=== PATIENT | male | born 1980 | race Caucasian/White ===

== ENCOUNTER → 2024-03-03 14:14 | Outpatient (CLI) | payer OTHER, SELFPAY ==
--- NOTE | 2024-03-03 | DI.US.S_ITS ---
PROCEDURE: US ARTERIAL DUPLEX LE BI INDICATIONS: POOR CIRCULATION (SOLES OF FEET GO WHITE) TECHNIQUE: Color and pulse Doppler interrogation was performed of both lower extremity arterial systems, with image documentation. COMPARISON: None. FINDINGS: Right lower extremity: Common femoral artery: 93 cm/sec, with triphasic flow. Deep femoral artery: 41 cm/sec, with biphasic flow. Proximal superficial femoral artery: 71 cm/sec, with triphasic flow. Mid superficial femoral artery: 91 cm/sec, with triphasic flow. Distal superficial femoral artery: 72 cm/sec, with triphasic flow. Popliteal artery: 57 cm/sec, with triphasic flow. Posterior tibial artery: 97 cm/sec, with triphasic flow. Anterior tibial artery/dorsalis pedis: 99 cm/sec, with triphasic flow. [place]ara-scale imaging description: No significant atherosclerotic plaque Left lower extremity: Common femoral artery: 79 cm/sec, with triphasic flow. Deep femoral artery: 49 cm/sec, with triphasic flow. Proximal superficial femoral artery: 103 cm/sec, with triphasic flow. Mid superficial femoral artery: 90 cm/sec, with triphasic flow. Distal superficial femoral artery: 84 cm/sec, with triphasic flow. Popliteal artery: 62 cm/sec, with triphasic flow. Posterior tibial artery: 96 cm/sec, with triphasic flow. Anterior tibial artery/dorsalis pedis: 90 cm/sec, with triphasic flow. [place]ara-scale imaging description: No significant atherosclerotic plaque IMPRESSION: Normal multiphasic waveforms of the bilateral lower extremity arterial vasculature with no velocity shift to suggest a hemodynamically significant stenosis. Dictated by: Carlos Manuel Pacheco M.D. on 03/03/2024 at 19:59 Approved by: Carlos Manuel Pacheco M.D. on 03/03/2024 at 20:01
== END ==
PROVIDERS: PCP Physician Assistant Medical; Referring Provider Physician Assistant Medical; Visit Provider Physician Assistant Medical
DX: I99.9 Unspecified disorder of circulatory system (principal)
CPT/HCPCS: 93925